=== PATIENT | female | born 1995 | race American Indian/Alaskan Native ===

== ENCOUNTER 2024-10-29 08:03 | Outpatient (AMB) | payer MEDICAID, SELFPAY ==
--- NOTE | 2024-10-29 08:02 | A.OFFVIS_ITS ---
Intake Visit Reasons: painful atypical urethritis Intake Note: New Patient is present c/o painful atypical urethritis Urology Rx:none Blood Thinners:none Perinatology Physician Required: No Accompanied by: Self / Same As Patient Allergies No Known Allergies Allergy (Verified 10/29/24 08:34) Medication List - Last Reconciled 10/29/24 by NADINE Gandara No Known Home Meds HPI Comments Details: Diana is a pleasant 29-year-old female patient of Dr. Lozoya. She has a past medical history of pelvic inflammatory disease, sinusitis, intermittent asthma, anxiety, depression, and dysmenorrhea. She presents to the office today as a new patient for ongoing lower urinary tract symptoms she has been experiencing over the last 3 months. She reports noting intermittent episodes of cloudy urine as well as ongoing issues with inflammation to her vaginal area. She reports having followed up with her PCP at which time recommendations were made for urology referral for further assessment evaluation. In office urinalysis results reviewed with the patient today 2+ microscopic hematuria. S he does report a previous history of nicotine dependence socially many years ago however has not smoked for over 10 years. She reports these episodes of smoking were infrequent. She also discusses her longstanding history of constipation over the last year. When asked she does report to be sexually active however does not relate these symptoms with sexual activity as they happen even without sexual intercourse. We did discussed potential causes of microscopic hematuria as well as cloudy urine. She denies urinary urgency, urinary frequency, incontinence, nocturia, hematuria, foul smelling urine, changes to urinary stream, flank pain, fever, and or chills. She does report episodes of dysuria at times when she is having inflammation to her vaginal area. She reports she has increased her fluid intake and changed her diet to assist with constipation and still feels she has bowel issues. She reports despite increase in fluid intake she feels she does not urinate regularly. We did discussed correlation of constipation with urinary health. All questions were answered. She otherwise offers no other issues or concerns at this time. Discussion Notes I advised avoiding bladder irritants such as caffeine, spicy foods, and carbonated drinks for two to four weeks to see if symptoms improve. We also discussed the use of a bladder diary to monitor fluid intake and output. Plan The patient will undergo an ultrasound of the kidneys and bladder to evaluate the urinary symptoms further. A referral to a target aircraft technician is planned to manage constipation, which may be impacting urinary function. The patient will keep a bladder diary to monitor fluid intake and urinary output, providing insight into urinary frequency and urgency. Avoidance of bladder irritants is recommended for two to four weeks to assess symptom improvement. [facility] Medical History (Updated 10/29/24 @ 09:20 by JESSIKA GandaraP-) Pelvic inflammatory disease Frontal sinusitis Cervicalgia Loss of smell Cough Mild intermittent asthma Dyspareunia in female Dysmenorrhea Lower abdominal pain Generalized anxiety disorder Moderate episode of recurrent major depressive disorder Review of Systems Const All systems reviewed & are unremarkable except as noted in HPI and below Physical Exam Const General: cooperative, healthy appearing, comfortable, no acute distress, well developed, alert and awake Orientation/consciousness: patient oriented x3 Limitations: no limitations HEENT Head: Yes normal to inspection, Yes normocephalic and Yes atraumatic Ears: hearing grossly normal bilaterally Eyes General: appearance normal, both eyes and all related structures Neck Neck: Yes normal visual inspection and Yes trachea midline Chest Chest palpation & inspection: normal inspection of the chest Resp Effort & Inspection: normal respiratory effort and able to speak in complete sentences Cardio Rate: regular rate GI Inspection: Yes normal to inspection General: Yes no CVA tenderness Back/Spine/Pelvis Back: no CVA tenderness Skin General skin exam: no rashes or lesions noted Neuro General: patient oriented x3 Extrem General: Yes normal to inspection Psych Appearance: grossly normal and well kempt Mental Status: mental status grossly normal Speech and movement: Normal speech and movement present and Clear speech present Affect: normal affect Attitude: cooperative Thought process: Normal thought process present Thought content: Normal thought content present Insight: Fair insight present (Psych) Judgement: Fair judgement present (Psych) Assessment & Plan Assessment & Plan (1) Cloudy urine: Code(s): R82.90 - Unspecified abnormal findings in urine Category: Medical (2) Microscopic hematuria: Code(s): R31.29 - Other microscopic hematuria Category: Medical Plan In office urinalysis results reviewed with the patient today; as noted above; will send for urine cytology as well as urine culture. We discussed bladder triggers and irritants. We discussed correlation of constipation and urinary health. Will refer to GI for further assessment evaluation. Will obtain retroperitoneal ultrasound for further assessment evaluation. We discussed potential causes of lower urinary tract symptoms patient is experiencing as well as further treatment options and risks and benefits of these treatment options. Information provided regarding bladder diary. Follow-up in 3 months with imaging and bladder diary; or sooner with any issues, concerns, and or questions. Orders: Orders AMB Urinalysis Automated Today Z13.9 - Encounter for screening, unspecified US retroperitoneal comp Today R82.90 - Unspecified abnormal findings in urine Urine Cytology Today R31.29 - Other microscopic hematuria, R82.90 - Unspecified abnormal findings in urine Urine Culture Today R31.29 - Other microscopic hematuria, R82.90 - Unspecified abnormal findings in urine Referrals Gastroenterology Referral K59.00 - Constipation, unspecified Patient Instructions: The patient had an opportunity to ask questions regarding the treatment plan. All questions were answered. Physical exam, labs, and imaging were discussed and reviewed in detail. As well as risks, benefits, and discussion of treatment choices. No major barriers to understanding were identified. The patient expressed understanding and agreement with the above treatment plan. The patient was made aware they should contact our office by phone for worsening of their current condition, the appearance of new symptoms, or with any questions or concerns. Compliance is encouraged with any medications and follow up testing that is ordered. It is a privilege to be allowed the opportunity to participate in? your urological care.? Again, if you have any questions or concerns If you have any questions or concerns please do not hesitate to contact me. The office is [phone]. This note is constructed using voice recognition software. While every effort has been made to ensure accuracy ornamental metal erector apprentice errors may have been included. Yours sincerely, NADINE Gandara Coding Level of Care Code New Pt Level 3 (88522) Diagnoses Cloudy urine R82.90 Microscopic hematuria R31.29
--- OUTSIDE RECORDS SUMMARY | 2024-10-29 08:08 | XMS_ITS | Clinical Summary ---
Author Organization [facility] Address [address] [place] [address] Phone Care Team Providers Care Tap Out Operator Name Role Phone Ricki Stokes Primary Care Provider [phone] Allergies No known active allergies Social History Tobacco Use Types Packs/Day Years Used Date Smoking Tobacco: Never Assessed Comments Unknown Sex and Gender Information Value Date Recorded Sex Assigned at Female 06/02/2024 12:17 PM EST Legal Sex Female 1:15 PM EST Gender Identity Female 06/02/2024 12:17 PM EST Sexual Orientation Straight 06/02/2024 12 :17 PM EST Last Filed Vital Signs Vital Sign Reading Time Taken Comments Blood Pressure 132/97 06/02/2024 10:44 AM EST Pulse 82 06/02/2024 10:44 AM EST Temperature 37.2 C (99 F) 06/02/2024 10:44 AM EST Respiratory Rate 16 06/02/2024 10:44 AM EST Oxygen Saturation 98% 06/02/2024 10:44 AM EST Inhaled Oxygen Concentration - - Weight 68 kg (150 lb) 06/02/2024 10:44 AM EST Height 160 cm (5' 3 ) 06/02/2024 10:44 AM EST Body Mass Index 26.57 06/02/2024 10:44 AM EST Plan of Treatment Health Maintenance Due Date Last Done Comments Cervical Cancer Screening: Pap Smear 2017 HPV Vaccines (2 - 3-dose series) 12/06/2020 11/08/2020 Social Influencers of Health Screening 03/07/2022 Hepatitis B Vaccines (2 of 2 - CpG 2-dose series) 01/31/2023 01/03/2023 Pneumococcal Vaccine: Pediatrics (0 to 5 Years) and At-Risk Patients (6 to 49 Years) (2 of 2 - PCV) 10/04/2023 10/03/2022 COVID-19 Vaccine (2 - season) 2023 10/03/2022 Depression Screening 04/09/2024 Influenza Vaccine (#1) 2024 , 03/15/2020, 02/10/2019, Additional history exists Cholesterol Screening (Lipid Panel) 05/13/2025 05/13/2020, 07/04/2018 DTaP,Tdap,and Td Vaccines (3 - Td or Tdap) 07/03/2028 07/03/2018, 05/25/2011 HIV Screening Completed 07/04/2018 Hepatitis C Screening Completed 10/16/2022 MMR Vaccines Aged Out 01/03/2023 No longer eligi ble based on patient's age to complete this topic HIB Vaccines Aged Out No longer eligi ble based on patient's age to complete this topic Hepatitis A Vaccines Aged Out No long er eligible based on patient's age to complete this topic IPV Vaccines Aged Out No longer eligi ble based on patient's age to complete this topic Meningococcal ACWY Vaccine Aged Out N o longer eligible based on patient's age to complete this topic Meningococcal B Vaccine Aged Out No l onger eligible based on patient's age to complete this topic RSV Immunization Patients Under 20 months Aged Out No longer eligible based on patient's age to complete this topic Varicella Vaccines Aged Out No longer eligible based on patient's age to complete this topic Insurance MEDICAID - [place] Care Teams Tap Out Operator Relationship Specialty Start Date End Date Ricki Stokes PA [address] [place] [id number] PCP - General Internal Medicine 10/13/20
--- OUTSIDE RECORDS SUMMARY | 2024-10-29 08:08 | XMS_ITS | Encounter Summary ---
Author Organization [employer] [facility] Address [address] [place] [address] Care Team Providers Care Associate Dean Of Students Name Role Phone Unavailable Primary Care Provider Unavailabl e Encounter Details Date Type Department Care Team (Late st Contact Info) Description 10/28/2024 Population Health Risk Score [facility] ([facility] Department [address] [address] Provider, Population Health Generic Social History Tobacco Use Types Packs/Day Years Used Date Smoking Tobacco: Never Assessed Comments Unknown Sex and Gender Information Value Date Recorded Sex Assigned at Not on file Legal Sex Female 9:28 PM EDT Gender Identity Not on file Sexual Orientation Not on file documented as of this encounter Plan of Treatment Not on file documented as of this encounter Visit Diagnoses Not on filedocumented in this encounter
== END 2024-10-29 08:38 | disposition home or self-care (01) ==
LOC: HO.HUSH 08:04
PROVIDERS: PCP Obstetrics & Gynecology Reproductive Endocrinology; Visit Provider Nurse Practitioner Family
DX: R82.90 Unspecified abnormal findings in urine (principal); R31.29 Other microscopic hematuria; Z13.9 Encounter for screening, unspecified
CPT/HCPCS: 99203

== ENCOUNTER 2024-10-29 08:03 | Outpatient (REF) | payer MEDICAID, SELFPAY | END 2024-10-29 08:04 | disposition home or self-care (01) | LOC: HO.LAB 08:03 | PROVIDERS: PCP Obstetrics & Gynecology Reproductive Endocrinology; Visit Provider Nurse Practitioner Family | DX: N34.2 Other urethritis (principal); R82.90 Unspecified abnormal findings in urine; R31.29 Other microscopic hematuria; K59.00 Constipation, unspecified; Z31.89 Encounter for other procreative management | CPT/HCPCS: 81003; 87086; 87147; 88112; 99212 ==

== ENCOUNTER 2024-12-30 13:31 | Outpatient (REF) | payer MEDICAID, SELFPAY ==
--- NOTE | ~2024-12-30 | US_ITS ---
EXAMINATION: US RETROPERITONEAL COMPLETE (RENAL) CLINICAL INFORMATION: Abnormal urine test. COMPARISON: None available. TECHNIQUE: Real-time imaging of the kidneys and bladder. FINDINGS: RIGHT KIDNEY: 12 x 4 x 6 cm (SAG x AP x TRV). Volume: 173 cc. Normal echotexture. Normal renal cortical thickness. No hydronephrosis. No solid or cystic lesion. LEFT KIDNEY: 11 x 5 x 5 cm (SAG x AP x TRV). Volume: 173 cc. Normal echotexture. Normal renal cortical thickness. No hydronephrosis. No gross solid or cystic lesion. BLADDER: Fluid-filled. Bilateral ureteral jets are demonstrated. Prevoid bladder volume is 368 mL. Postvoid bladder volume is 13 mL. US/US retroperitoneal comp IMPRESSION: 13 cc of retained urine in a post void image. No hydronephrosis. Normal kidneys. Electronically signed by: Nawaf Alston MD 12/30/2024 02:14 PM EDT
--- OUTSIDE RECORDS SUMMARY | 2024-12-30 16:37 | XMS_ITS | Clinical Summary ---
Author Organization [facility] Address [address] [place] [address] Care Team Providers Care Housekeeping Cleaner Name Role Phone Ricki Stokes Primary Care Provider Source Comments PLEASE NOTE, if this patient is a minor, it may be UNLAWFUL to discuss sensitive information that is contained in these records (such as FAMILY PLANNING, MENTAL HEALTH or SUBSTANCE ABUSE) with the minor patient's parent or other person without the patient's specific authorization.[facility] Allergies No known active allergies Medications docusate sodium (COLACE) 100 mg capsuleIndicati ons:Difficulty passing stool Take 1 Capsule by mouth 2 (two) times daily 180 Capsule 4 Active polyethylene glycol, PEG, 3350 (GLYCOLAX) 17 gram/dose powderIndicatio ns:Difficulty passing stool Take 17 g by mouth once daily as needed (if no complete BM in 4 days) 510 g 4 Active hydrocortisone 1 % cream Apply topically 2 (two) times daily Apply very lightly to affected areas only. 30 g 1 5 Active naproxen (NAPROSYN) 500 mg tabletIndicatio ns:Chronic pain of right knee Take 1 Tablet by mouth 2 (two) times daily with a meal. 60 Tablet 1 5 Active sulfamethoxazol e-trimethoprim (BACTRIM DS) 800-160 mg per tabletIndicatio ns:Urinary tract infection without hematuria, site unspecified Take 1 Tablet by mouth 2 (two) times daily 6 Tablet 4 12/10/19 25 Discontin ued(Thera py completed /Not needed) ibuprofen 600 mg tabletIndicatio ns:Influenza Take 1 Tablet by mouth 3 (three) times daily as needed for pain TAKE 1 TABLET BY MOUTH FOUR TIMES DAILY FOR PAIN 30 Tablet 5 12/10/19 25 Discontin ued(Ineff ective therapy) codeine-guaifen esin (ROBITUSSIN-AC) 10-100 mg/5 mL syrupIndication s:Influenza Take 5 mL by mouth every 6 (six) hours as needed for cough or congestion for up to 5 days 120 mL 5 12/10/19 25 Discontin ued(Thera py completed /Not needed) Active Problems Patient Care Coordination No te Formatting of this note migh t be different from the original. 23 y/o presents to clinic for evaluation of congestion concerns. Problem Noted Date Diagnosed Date Food insecurity 10/08/2024 Financial difficulties 10/08/2024 Moderate episode of recurren t major depressive disorder ([facility]) 09/14/2023 Generalized anxiety disorder 09/14/2023 Lower abdominal pain 05/04/2021 Dysmenorrhea 05/04/2021 Dyspareunia in female 05/04/2021 Mild intermittent asthma ([facility]) 05/04/2021 Cough 04/10/2021 Loss of smell 04/10/2021 Cervicalgia 10/05/2020 Frontal sinusitis 02/11/2019 Pelvic inflammatory disease (PID), Suspected 07/2018 Overview (02/10/2019): 03/28/18, [facility] report, Impression PID, Suspected - UA positive for nitries and white cells. On exam she has some very mild suprapubic tenderness, pelvic exam also with some white discharge and some mild adnexal and certical motion tenderness. Wet prep (-). She tells me that she is somewhat suspicious of her partner for having other partners. Given this history, we will go ahead and treat her empirically for PID. Given muscular ceftriaxone, and discharged with doxy and keflex courses. Resolved Problems Problem Noted Date Diagnosed Date Resolved Date Upper respiratory infection 04/10/2021 06/03/[address] 07/03/2018 Overview (07/03/2018): October 2017 placed by [facility] Homelessness 05/30/2018 07/03/2018 Encounters Date Type Department Care Team Description 12/15/2024 Results Follow-Up [address] [phone] Jose Luis Barrios FNP 12/09/2024 4:20 PM EDT Office Visit [address] [phone] Jose Luis Barrios FNP 12/01/2024 4:00 PM EDT BH/MH Visits [facility] [address] [place] [phone] Kevin Dawkins, [employer] 11/18/2024 4:00 PM EDT BH/MH Visits [facility] [address] [place] [phone] Kevin Dawkins, [employer] 10/28/2024 4:00 PM EDT BH/MH Visits [facility] [address] [place] [phone] Kevin Dawkins, [employer] 10/17/2024 3:15 PM EDT BH/MH Visits [facility] [address] [place] [phone] Kevin Dawkins, [employer] 10/08/2024 Interim Notes [address] [phone] Cappas, Caitlyn 10/06/2024 Interim Notes [address] [phone] Neisha Henderson from Last 3 Months Immunizations Immunization Administration Dates Next Due Flu, Preservative Free 01/03/2023,03/15/2020,07/2018 HPV 9 (Gardasil) 11/08/2020 Hep B,adult,adjuvanted (HEPLISAV) 01/03/2023 INFLUENZA, SEASONAL, INJECTABLE 02/07/2018,05/07 Influenza, Whole 02/15/2011 MMR (MMR II/Priorix) 01/03/2023 MODERNA COVID-19 VACCINE BIV ESMER, JASON CAP, 6M+ 10/03/2022 PNEUMOCOCCAL POLYSACCHARIDE PPV23 (Pneumovax 23) 10/03/2022 TDAP 07/03/2018,05/25/2011 Family History Medical History Relation Name Comments Hypertension Mother Relation Name Status Comments Mother Alive Social History Tobacco Use Types Packs/Day Years Used Date Smoking Tobacco: Never Smokeless Tobacco: Never Tobacco Cessation:Counseling Given: Not Answered Alcohol Use Standard Drinks/Week Comments No 0 (1 standard drink = 0.6 oz pur e alcohol) Social Connections Answer Date Recorded How often do you feel lonely or isolated from th ose around you? 1 10/08/2024 Financial Resource Strain Answer Date R ecorded Hard to pay for: Food 2 10/08/2024 Stress Answer Date Recorded Do you feel these kinds of stress these days? 1 10/08/2024 Physical Activity Answer Date Recorded Physical Activity 0 11/30/2018 Food Insecurity Answer Date Recorded Hard to pay for: Food 2 10/08/2024 Transportation Needs Answer Date Record ed Hard to pay for: Transportation 1 10/08/2024 Housing Stability Answer Date Recorded Hard to pay for: Rent/Mortgage payment 1 10/08/2024 Safety and Environment Answer Date Mekhi rded How often does anyone, inclu ding family and friends, physically hurt you? 1 06/05/2024 Utilities Answer Date Recorded Hard to pay for: Utilities 1 10/08 Employment Answer Date Recorded Stress 0 09/28/2022 Comments No Sex and Gender Information Value Date Recorded Sex Assigned at Female 05/01/2017 12:39 PM PST Legal Sex Female 11:36 AM PDT Gender Identity Female 05/01/2017 12:39 PM PST Sexual Orientation Straight 09/28/2022 8: 06 AM PDT Last Filed Vital Signs Vital Sign Reading Time Taken Comments Blood Pressure 102/62 12/09/2024 4:28 PM EDT Pulse 71 12/09/2024 4:28 PM EDT Temperature 36.9 C (98.4 F) 12/09/2024 4:28 PM EDT Respiratory Rate 18 12/09/2024 4:28 PM EDT Oxygen Saturation 99% 12/09/2024 4:28 PM EDT Inhaled Oxygen Concentration - - Weight 73.9 kg (163 lb) 12/09/2024 4:28 PM EDT Height 160 cm (5' 3 ) 12/09/2024 4:28 PM EDT Body Mass Index 28.87 12/09/2024 4:28 PM EDT Plan of Treatment Upcoming Encounters Date Type Department Care Team (Late st Contact Info) Description 01/05/2025 4:00 PM EDT BH/ Visits [facility] [address] [place] [phone] Kevin Dawkins, [facility] [address] [place] [address] 01/20/2025 4:00 PM EDT BH/ Visits [facility] [address] [place] [phone] Kevin Dawkins, [facility] [address] [place] [address] 01/27/2025 3:40 PM EDT Office Visit [facility] [address] [place] [phone] Ricki Stokes PA [address] [place] [address] Health Maintenance Due Date Last Done Comments HPV Screening 1996 Imm-HPV (2 - 3-dose series) 12/06/2020 11/08/2020 Imm-Hepatitis B (2 of 2 - Cp G 2-dose series) 01/31/2023 01/03/2023 Pap Smear 09/03/2023 09/02/2020, 09/02/2020 Imm-Pneumococcal (2 of 2 - PCV) 10/04/2023 Depression Monitoring 09/02/2024 06/05/2024 , 01/24/2024, 01/24/2024, Additional history exists [id number] (2 - 2024- season) 2024 023 Imm-Influenza (#1) 2024 01/03/2023, 1 05/16/2019, 02/10/2019, Additional history exists Annual Wellness (Adult): Indicated (All Coverage) 01/23/2025 01/24/2024, 09/28/2022, 07/03/2018, Additional history exists Anxiety Screening 03/19/2025 03/19/2024 Relationship Safety Screening/Counseling 06/05/2025 06/05/2024, 05/21/2023, 09/28/2022, Additional history exists Tobacco Screening 06/05/2025 06/05/2024 Hypertension Screening (#1) 12/09/2025 Imm-DTaP/Tdap/Td (3 - Td or Tdap) 07/03/2028 019, 05/25/2011 Cervical Cancer Screening 10/06/2028 Pap + HPV 10/06/2028 10/07/2023 HIV Screening Completed 07/04/2018 Hepatitis C Screening Completed 10/16/2022 Alcohol and Drug Screen Completed 06/05/19 25, 01/24/2024, 05/21/2023, Additional history exists Cervical Ablation/Cold-Knife Conization Discontinued Cervical Cryotherapy Discontinued Colposcopy Discontinued Endometrial Biopsy Discontinued Excision/Leep Discontinued HPV Genotyping Discontinued Vaginal Pap Discontinued Vulvoscopy Discontinued Procedures Procedure Name Priority Date/Time Associated Diagnosis Comments KNEE LAVERNE Routine 12/11/2024 3:00 AM EDT Chronic pain of right knee HEPATITIS C AB W/RFLX HCV RNA, QT, RT PCR Routine 10/16/2022 11:05 AM EDT Routine adult health maintenance PAP SMEAR Routine 09/02/2020 ANTIBODY HIV-1&HIV-2 SINGLE RESULT Routine 07/04/2018 10:00 AM EDT Routine general medical examination at a health care facility from Last 3 Months or Most Recently Relevant to Health Maintenance Results * MR ANDRA GALLOWAY (12/11/2024 3:00 AM EDT) 12/11/2024 3:00 AM EDT Impressions [facility] - 12/11/2024 6:14 PM EDT IMPRESSION: 1. No meniscal or ligament tear. 2. 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 Read by: James Fletcher M.D. Reviewed and Electronically Signed by: James Fletcher M.D. [facility] DI[facility]NOSTIC [facility] - 12/11/2024 6:14 PM EDT Original Report EXAM: MR KNEE WITHOUT CONTRAST RIGHT INDICATION: Right knee pain. TECHNIQUE: Routine multiplanar imaging is obtained. COMPARISON: None. FINDINGS: Normal medial and lateral menisci. Normal anterior cruciate ligament and posterior cruciate ligament. Medial collateral ligament and lateral collateral ligament complex are intact. No osseous contusion. No significant knee joint effusion. There is patella kulwinder with minimal lateral translation of the patella. Moreover, there is edema in the superolateral portion of Hoffa's fat pad, mild, in keeping with patella lateral femoral condyle friction syndrome. Patellar articular cartilage is preserved. Femoral trochlear cartilage is preserved. Femorotibial cartilage is preserved. Extensor mechanism is unremarkable. Procedure Note Demarco, [facility] Provider - 12/11/2024 Original Report EXAM: MR KNEE WITHOUT CONTRAST RIGHT INDICATION: Right knee pain. TECHNIQUE: Routine multiplanar imaging is obtained. COMPARISON: None. FINDINGS: Normal medial and lateral menisci. Normal anterior cruciate ligament and posterior cruciate ligament. Medial collateral ligament and lateral collateral ligament complex are intact. No osseous contusion. No significant knee joint effusion. There is patella kulwinder with minimal lateral translation of the patella. Moreover, there is edema in the superolateral portion of Hoffa's fat pad, mild, in keeping with patella lateral femoral condyle friction syndrome. Patellar articular cartilage is preserved. Femoral trochlear cartilage is preserved. Femorotibial cartilage is preserved. Extensor mechanism is unremarkable. IMPRESSION: IMPRESSION: 1. No meniscal or ligament tear. 2. 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 Read by: James Fletcher M.D. Reviewed and Electronically Signed by: James Fletcher M.D. Jose Luis Barrios [employer] IM[facility] MRI Edited Re sult - Final [facility] Corporate Office [address], [address] [place] [address], * HEPATITIS C AB W/RFLX HCV RNA, QT, RT PCR (10/16/2022 11:05 AM EDT) HEPATITIS C ANTIBODY NON-REACT AMANDA NON-REACT [facility] Comment: HCV antibody was non-reactive. There is no laboratory evidence of HCV infection. In most cases, no further action is required. However, if recent HCV exposure is suspected, a test for HCV RNA (test code 57764) is suggested. For additional information please refer to http://education.[employer]/faq/UWI25q5 (This link is being provided for informational/ educational purposes only.) Blood Blood / Unknown 10/16/2022 1 1:05 AM EDT 10/16/2022 11:06 AM EDT Narrative [employer] - 10/17/2022 6:08 PM EDT FASTING:NO Ricki ALLEN LAB - BLOOD DRAW Final Result Performing Organization Address [facility]/ZIP Co de Phone Number [employer] [address] [address], [employer] [address] [address] * PAP SMEAR (09/02/2020) PAP SMEAR INTERPRETATION NORMAL NORMAL [facility] Cervix 09/02/2020 Narrative [facility] - 09/02/2020 Thinprep pap: Negative for squamous intraepithelial lesion and malignancy Satisfactory for evaluation. Endocervical/transformation zone present. Provider [facility] - PATHOLOGY AND CYTOLOGY AMB ULATORY Final Result [facility] [address] [place] [address], * HIV-1 & HIV-2 ANTIBODIES (07/04/2018 10:00 AM EDT) [facility] Signature HIV 1 AND 2 ANTIBODY SCREEN NEGATIVE NEGATIVE [employer] [facility] Comment: This assay is a 4th generation assay allowing for earlier detection of HIV infection by detecting the presence of the HIV-1 p24 antigen as well as the traditional antibodies to HIV type 1 (including group O) and type 2. Use of a 4th generation assay is the current CDC recommendation for HIV screening. Blood specimen (specimen) Blood / Unknown 07/04/2018 10:00 AM EDT 07/04/2018 11:05 AM EDT [facility] [employer] - 07/04/2018 2:27 PM EDT [employer], [place] [address] Embedded Nurse - Maria T Downing MD PT ID [id number] ORD# [id number] Nicole Deluna PA-C LAB - BLOOD DRAW Final Re sult [address] [address], from Last 3 Months or Most Recently Relevant to Health Maintenance Insurance [facility] [employer] [id number] [employer] Care Teams Housekeeping Cleaner Relationship Specialty Start Date End Date Ricki Stoeks PA [address] [place] [address] PCP - General Internal Medicine 06/05/18
--- OUTSIDE RECORDS SUMMARY | 2024-12-30 16:37 | XMS_ITS | Clinical Summary ---
Author Organization [employer] [facility] Address [address] [facility] [address] [place] [address] Care Team Providers Care Relief Charge Nurse Name Role Phone Unavailable Primary Care Provider Unavailabl e Encounters Date Type Department Care Team Description 10/28/2024 Population Health Risk Score [facility] Department [address] [address] Provider, Population Health Generic from Last 3 Months Social History Tobacco Use Types Packs/Day Years Used Date Smoking Tobacco: Never Assessed Comments Unknown Sex and Gender Information Value Date Recorded Sex Assigned at Not on file Legal Sex Female 9:28 PM EDT Gender Identity Not on file Sexual Orientation Not on file Plan of Treatment Health Maintenance Due Date Last Done Comments Depression Screening 1996 SDOH Screening 1996 Disability Screening 1996 Alcohol/Substance Use Screening 2008 Tobacco Screening 2008 Family Planning (PISQ) 2011 Hepatitis C Screening 2014 Pap Smear 2017 HPV Vaccines (2 - 3-dose series) 12/06/2020 11/08/2020 Hepatitis B Vaccines (2 of 2 - CpG 2-dose series) 01/31/2023 01/03/2023 Pneumococcal Vaccine: Pediatrics (0 to 5 Years) and At-Risk Patients (6 to 49) Years (2 of 2 - PCV) 10/04/2023 10/03/2022 COVID-19 Vaccine (2 - 2024- season) 2024 10/03/2022 Influenza Vaccine (#1) 2024 , 03/15/2020, 02/10/2019, Additional history exists DTaP/Tdap/Td Vaccines (3 - Td or Tdap) 07/03/2028 07/03/2018, 05/25/2011 Zoster Vaccines (1 of 2) 2046 RSV Patients and Patients Aged 60 years or older (1 - 1-dose 75+ series) 2071 HIV Screening Completed 07/04/2018 HIB Vaccines Aged Out No longer eligi [...] patient's age to complete this topic Meningococcal Vaccine Aged Out No [place] eligible based on patient's age to complete this topic RSV under 20 months Aged Out No longe r eligible based on patient's age to complete this topic Rotavirus Vaccines Aged Out No longer eligible based on patient's age to complete this topic
--- OUTSIDE RECORDS SUMMARY | 2024-12-30 16:37 | XMS_ITS | Clinical Summary ---
Author Organization [facility] Address [address] [place] [address] Phone Care Team Providers Care Adobe Architect Name Role Phone Ricki Stokes Primary Care Provider [phone] Allergies No known active allergies Social History [...] 06/02/2024 10:44 AM EST Plan of Treatment Upcoming Encounters Date Type Department Care Team (Late st Contact Info) Description 01/30/2025 9:00 AM EDT Evaluation [facility] [address] [phone] Renee Dennis PT Health Maintenance Due Date Last Done Comments Cervical Cancer Screening: Pap Smear 2017 HPV Vaccines (2 - 3-dose series) 12/06/2020 11/08/2020 Social Influencers of Health Screening 03/07/2022 Hepatitis B Vaccines (2 of 2 - CpG 2-dose series) 01/31/2023 01/03/2023 Pneumococcal Vaccine: Pediatrics (0 to 5 Years) and At-Risk Patients (6 to 49 Years) (2 of 2 - PCV) 10/04/2023 10/03/2022 Depression Screening 04/09/2024 COVID-19 Vaccine (2 - 2024- season) 2024 10/03/2022 Influenza Vaccine (#1) 2024 , 03/15/2020, 02/10/2019, Additional history exists Cholesterol Screening (Lipid Panel) 05/13/2025 05/13/2020, 07/04/2018 DTaP,Tdap,and Td Vaccines (3 - Td or Tdap) 07/03/2028 07/03/2018, 05/25/2011 RSV Immunization Adult Patients (1 - 1-dose 75+ series) 2071 HIV Screening Completed 07/04/2018 Hepatitis C Screening [...] patient's age to complete this topic Insurance Care Teams Adobe Architect Relationship Specialty Start Date End Date Ricki Stokes PA [address] [place] [address] PCP - General Internal Medicine 10/13/20
== END 2024-12-30 13:32 | disposition home or self-care (01) ==
LOC: HO.US 13:31
PROVIDERS: PCP Physician Assistant; Visit Provider Nurse Practitioner Family
DX: R82.90 Unspecified abnormal findings in urine (principal)
CPT/HCPCS: 76770

== ENCOUNTER → 2024-12-30 13:34 | Outpatient (BNV) | payer MEDICAID, SELFPAY | PROVIDERS: PCP Physician Assistant; Visit Provider Radiology Diagnostic Radiology | DX: R82.79 Other abnormal findings on microbiological examination of urine (principal) | CPT/HCPCS: 76770 ==

== ENCOUNTER 2025-02-03 15:44 | Outpatient (AMB) | payer MEDICAID, SELFPAY ==
--- OUTSIDE RECORDS SUMMARY | 2025-01-30 09:00 | XMS_ITS | Encounter Summary ---
Author Organization [facility] Address [address] [place] [address] Care Team Providers Care Dining Service Inspector Name Role Phone Ricki Stokes Primary Care Provider [phone] Reason for Visit * Consultation (Routine) - Authorized Specialty Diagnoses / Procedures Referred By Adina hodges Referred To Contact Physical Therapy Diagnoses Chronic pain of right knee Jose Luis Barrios NP [address] [place] [address] Phone: tel: fax: Referral ID Status Reason Start Date Expiration Date Visits Requested Visits Authorized [id number] Authorized Specialty Services Required 12/26/2024 12/26/2025 20 9 Encounter Details Date Type Department Care Team (Latest Contact Info) Description 01/30/2025 9:00 AM EDT Evaluation [address] [phone] Renee Dennis, INDIO Chronic pain of right knee Social History Tobacco Use Types Packs/Day Years Used Date Smoking Tobacco: Never Assessed Comments Unknown Sex and Gender Information Value Date Recorded Sex Assigned at Female 06/02/2024 12:17 PM EST Legal Sex Female 1:15 PM EST Gender Identity Female 06/02/2024 12:17 PM EST Sexual Orientation Straight 06/02/2024 12 :17 PM EST documented as of this encounter Progress Notes * Renee Dennis, INDIO - 01/30/2025 9:00 AM EDT [facility] - Outpatient PHYSICAL THERAPY EVALUATION Date: 01/30/2025 Visit Number: 1 Patient Name: Diana Best : 1995 Age: 29 y.o. Gender: female Diagnosis: ICD-10-CM ICD-9-CM 1. Chronic pain of right knee M25.561 719.46 Ambulatory referral to Physical Therapy and Athletic Training G89.29 338.29 Date of Onset/Surgery: 01/30/2025 Referring Provider: Jose Luis Barrios NP Insurance: [place] / Plan[place] / Product Type: *No Product type* / Patient identified by: Renee Dennis PT Language: Speaks and understands Anguillan as preferred language with no sign language interpreter required Chart Reviewed: Yes Medications: Medications Ordered Prior to Encounter[1] Discussed current medications that may impact therapy. Medication list obtained and reviewed. Referto document in medical record. Advised Patient to contact MD with any questions regarding medications and importance of managing medication information. has no past medical history on file. has no past surgical history on file. has no known allergies. Precautions: none Concurrent Services: No Concurrent Services Previous Medical Care/Therapy: prescribed naprosyn SUBJECTIVE History of Present Illness/Subjective Report: Pt presents with report of impact injury to her rightknee in 2020 that seemed to be healed within a few months. Pt reported that she feels a sharp/shooting pain that initiates from her R groin into the anterior region of her thigh to her knee. Pt reported that the pain is burning in nature and that she cannot feel her R foot/ankle when the pain is sev ere. 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 Pt was prescribed naprosyn which seemed to alleviate the symptoms a little, however, she stopped taking the medication secondary to constipation. Pt referred to PT for evaluation and treatment of chronic R knee pain. Current Functional Limitations: Reported by Patient difficulty with turning in bed, prolonged standing, prolonged sitting, squatting, lifting Is the patient at Risk for Falls: No Pain: Anterior aspect of R quiros, chronic, tender/burning, 06/16 Home Environment: pt lives in second floor apartment with stair access Prior Level of Function: independent with ambulation and ADLs, working as DIVISION OPERATIONS SPECIALIST OBJECTIVE General Observations/Comments: pt is pleasant and cooperative Vitals: There were no vitals filed for this visit.; General/Functional Assessments/Extremity Assessments: Sit <-> stand: independent Ambulation: independent, mildly antalgic Bed mobility via log rolling: independent, antalgic, increased time Posture: sitting: forward head, rounded shoulders, elevated and protracted scapulae, decreased thoracic kyphosis, decreased lumbar lordosis; standing: anterior pelvic tilt Palpation: TTP R TFL/ITB and vastus lateralis muscles; patellar joint play: WNL on L, hypomobile onR; patellar tracking: slightly laterally (B) Range of Motion: Lumbar AROM: Flexion: 75% Extension: 50% +pain in lower abdomen SB L: 75% +pain on R SB R: 75% Rot L: 75% +muscle cramp Rot R: 75% +muscle cramp Hip IR PROM: WNL (B) Hip ER PROM: WNL (B) Hip extension PROM: WNL on L, 5 deg on R Knee AROM: WNL (B) Hamstring length: WNL (B) Strength: Hip MMT: Flexion: 4/5 L, 3-/5 L ABD: 3+/5 L, 3-/5 R Extension: 3-/5 L, 3-/5 R Knee MMT: Flexion: 4+/5 L, 4+/5 R Extension: 5/5 L, 5/5 R Ankle DF MMT: 5/5 L, 4/5 R Special Tests: Passive SLR test: negative Passive crossed SLR test: negative Active SLR test: positive, +pain and difficulty on R Antonia's test: positive (B), R>L Beatrice's test: positive on R Core strength via double leg lower test: 75 deg (poor) TREATMENT INTERVENTION Modalities: None performed Procedures: Therex: supine figure-4 stretch, 3 x 15 seconds (B); supine TFL/ITB stretch, 3 x 15 seconds (B); bridging, x 10; seated hip flexor/quadriceps stretch, 3 x 15 seconds; standing resisted bilateral shoulder extension with TAC, green TB, 10 x 5 seconds ASSESSMENT/Response to Treatment: Diana Best is a 29 y.o. female presenting for outpatient physical therapy evaluation with complaints of chronic R knee pain. Significant clinical findings include: decreased ROM, decreased strength, increased myofascial restrictions and pain. Patients progress may be limited by chronicity of condition and h/o C-sections. Skilled Physical therapy is medically necessary to address impairments to increase core and hip strength in order to improve lumbopelvic stability and allow for greaterease during functional mobility. Rehabilitation Potential: Rehab Potential: Functional Improvement in Response to Therapy Motivation for Rehab: Good Support Structure: Good Learning Needs: Were Patient Learning needs assessed: Yes Learning Preferences: Explanation and Demonstration Barriers to Learning: No Barriers to Learning Patient Education: [x] Discussed, with patient and/or caregiver, the recommended plan of care/goals, the importance oftherapy and appointment compliance in order to achieve goals in a timely manner. Education provided: POC; provided pt with written instructions for above therex Education Provided To: Patient utilizing Explanation, Demonstration, and Printed Material as mode(s) of education. Response to Education: Verbal Understanding and Demonstrated Skills GOALS Short-term goals: (4 visits) Pt will demonstrate compliance with HEP Pt will increase core strength to below average during DLL test Pt will increase hip MMT to 4-/5 Pt will report decreased frequency of anterior thigh pain to 3/7 days per week Long-term goals: (8 visits) Pt will be indep with final HEP Pt will report no anterior thigh pain over the past week Pt will increase hip MMT to 4/5 Pt will increase core strength to average during DLL test Pt will demonstrate neutral pelvic position when standing PLAN POC Development/Review: Initial Evaluation; Participants: Patient Skilled Therapy Plan Required: YES- Reasons for Rehab and Medical Necessity -- Function in Community Planned Therapy Interventions: Cold Pack, Hot Pack, Kinesiotaping, Manual Therapy, Neuromuscular Re-education, Therapeutic Activity, and Therapeutic Exercise Therex: lumbar stabilization; core strengthening; BLE stretching therex with focus on hip flexor, quadriceps and TFL/ITB muscles; BLE strengthening therex with focus on hip flexor, hip ABD, hip extensor and VMO muscles Recommended Consults: none Equipment Recommended: none; Equipment Provided: none Frequency/Duration: 2x/wk for 4 wks BILLING TOTAL TREATMENT TIME: 60 Minutes Evaluation Medium Complexity Justification ::: A history of present problem with 1 - 2 personal factors and/or co-morbidities that impact the plan of care and An examination of body systems using standardized tests and measures in addressing a total of 3 or more elements from any of the following body structures and functions, activity limitations, and/or participation restrictions Documentation completed by Renee Dennis PT [address] [address] Dept: [phone] Dept PATIENT NAME: Diana Best : 1995 Certification: This is to certify that the above named patient, who is under my care, requires skilled Therapy services as described in the above treatment plan. I further certify that the services outlined in this plan are skilled and medically necessary. I have reviewed this plan for rehabilitation services, and I recommend that these services continue to meet the above stated goals and plan. SIGNATURE: DATE Jose Luis Barrios NP Referring provider [1] No current outpatient medications on file prior to visit. No current facility-administered medications on file prior to visit. documented in this encounter Plan of Treatment Upcoming Encounters Date Type Department Care Team (Late st Contact Info) Description 02/17/2025 3:30 PM EST Treatment [address] [address] Lele Giraldo, DOCTORATE OF CHIROPRACTIC 02/24/2025 4:00 PM EST Treatment [address] [address] Lele Giraldo, DOCTORATE OF CHIROPRACTIC 02/26/2025 4:00 PM EST Treatment [address] [address] Lele Giraldo, DOCTORATE OF CHIROPRACTIC 03/02/2025 10:00 AM EST Treatment [address] [address] Renee Dennis, PT 03/04/2025 10:30 AM EST Treatment [facility] [address] [address] FarshadMarietta gonzalezew, DOCTORATE OF CHIROPRACTIC 03/10/2025 4:00 PM EST Treatment [facility] [address] [address] Andrew Jade, DOCTORATE OF CHIROPRACTIC 03/13/2025 9:00 AM EST Treatment [facility] [address] [address] Renee Dennis, PT 03/19/2025 3:30 PM EST [facility] [address] [address] Renee Dennis, PT documented as of this encounter Visit Diagnoses Diagnosis Chronic pain of right knee documented in this encounter Orders Outpatient Referral Count Last Ordered Date st Ordered Date AMB REFERRAL [facility] 01/30/2025 documented in this encounter Care Teams Dining Service Inspector Relationship Specialty Start Date End Date Ricki Stokes PA [address] [place] [address] PCP - General Internal Medicine 10/13/20 documented as of this encounter
--- NOTE | 2025-02-03 16:03 | A.OFFVIS_ITS ---
Intake Visit Reasons: 3m/US Intake Note: Patient presents today for: 3m/US Urology Rx:none Blood Thinners:none US done: 12/30/24 Occupational Therapy Co Director Required: No Accompanied by: Self / Same As Patient Allergies No Known Allergies Allergy (Verified 02/03/25 16:05) HPI Comments Details: Diana is a pleasant 29-year-old female patient of Dr. Lozoya. She has a past medical history of pelvic inflammatory disease, sinusitis, intermittent asthma, anxiety, depression, and dysmenorrhea. She presents to the office today for follow-up. Of note, patient was seen approximately 3 months ago as a new patient for lower urinary tract symptoms at which time a retroperitoneal ultrasound was ordered for further assessment evaluation in discussion regarding potential causes of lower urinary tract symptoms was had. Urinalysis during last office visit was sent for urine culture and resulted with group B strep. In discussion with the patient today she reports having completed ampicillin as prescribed. Recent retroperitoneal ultrasound results 01/01 bilateral kidneys are normal in echotexture and thickness. No hydronephrosis, renal lesions or renal calculi noted bilaterally. The bladder is fluid-filled. Postvoid bladder volume 15 mL. She reports since her last office visit here she has since followed up with her PCP and has since been started on senna for her ongoing issues of constipation. She discusses how helpful this has been and feels lower urinary tract symptoms have since subsided as she has been having more regular bowel movements. We did discussed correlation of constipation with lower urinary tract symptoms. During last office visit patient requested referral to gastro enterology for further assessment evaluation however has not yet received a call. Information was provided. In office urinalysis results reviewed with the patient today. During previous office visit patient was noted to have microscopic hematuria however no microscopic hematuria noted on urinalysis today. She denies urinary urgency, urinary frequency, incontinence, nocturia, hematuria, dysuria, foul smelling urine, changes to urinary stream, flank pain, fever, and or chills. She is happy with her current voiding parameters. Urine Cytology: 10/31 Negative for high-grade urothelial carcinoma. Urine culture: 10/31 10,000 to 50,000 cfu/ml Mixed bacterial nayely characteristic of urogenital contamination. Organism 1 Strep agalactiae (Grp B) [facility] Medical History (Updated 10/29/24 @ 09:20 by NADINE Gandara) Pelvic inflammatory disease Frontal sinusitis Cervicalgia Loss of smell Cough Mild intermittent asthma Dyspareunia in female Dysmenorrhea Lower abdominal pain Generalized anxiety disorder Moderate episode of recurrent major depressive disorder Review of Systems Const All systems reviewed & are unremarkable except as noted in HPI and below Physical Exam Const General: cooperative, healthy appearing, comfortable, no acute distress, well developed, alert and awake Orientation/consciousness: patient oriented x3 Limitations: no limitations HEENT Head: Yes normal to inspection, Yes normocephalic and Yes atraumatic Ears: hearing grossly normal bilaterally Eyes General: appearance normal, both eyes and all related structures Neck Neck: Yes normal visual inspection and Yes trachea midline Chest Chest palpation & inspection: normal inspection of the chest Resp Effort & Inspection: normal respiratory effort and able to speak in complete sentences Cardio Rate: regular rate GI Inspection: Yes normal to inspection General: Yes no CVA tenderness Back/Spine/Pelvis Back: no CVA tenderness Skin General skin exam: no rashes or lesions noted Neuro General: patient oriented x3 Extrem General: Yes normal to inspection Psych Appearance: grossly normal and well kempt Mental Status: mental status grossly normal Speech and movement: Normal speech and movement present and Clear speech present Affect: normal affect Attitude: cooperative Thought process: Normal thought process present Thought content: Normal thought content present Insight: Fair insight present (Psych) Judgement: Fair judgement present (Psych) Results AMB Urinalysis, Automated UA Leukoctes 0 Zakiya/uL Last Edit by MIRNA Mcgee on 02/03/25 16:18 UA Nitrite Negative Last Edit by MIRNA Mcgee on 02/03/25 16:18 UA Urobilinogen 0.2 mg/dL Last Edit by MIRNA Mcgee on 02/03/25 16:1 8 UA Protein 0 mg/dL Last Edit by MIRNA Mcgee on 02/03/25 16:18 UA pH 6.5 Last Edit by MIRNA Mcgee on 02/03/25 16:18 UA Blood 0 Asim/uL Last Edit by MIRNA Mcgee on 02/03/25 16:18 UA Specific [place] 1.010 Last Edit by MIRNA Mcgee on 02/03/25 16: 18 UA Ketone Last Edit by MIRNA Mcgee on 02/03/25 16:18 UA Bilirubin 0 mg/dL Last Edit by MIRNA Mcgee on 02/03/25 16:18 UA Glucose 0 mg/dL Last Edit by MIRNA Mcgee on 02/03/25 16:18 Results Reviewed Results Reviewed: Laboratory Last Values Urine pH (Auto) 6.5 02/03/25 16:17 Specific [place] (Auto) 1.010 02/03/25 16:17 Urine Protein (Auto) 0 mg/dL 02/03/25 16:17 Glucose (UA)(Auto) 0 mg/dL 02/03/25 16:17 Urine Blood (Auto) 0 Asim/uL 02/03/25 16:17 Urine Nitrite (Auto) Negative 02/03/25 16:17 Urine Bilirubin (Auto) 0 mg/dL 02/03/25 16:17 Urine Urobilinogen (Auto) 0.2 mg/dL 02/03/25 16:17 Leukocyte Esterase (Auto) 0 Zakiya/uL 02/03/25 16:17 Date of Service: 12/30/24 Procedure(s): US retroperitoneal comp FINDINGS: RIGHT KIDNEY: 12 x 4 x 6 cm (SAG x AP x TRV). Volume: 173 cc. Normal echotexture. Normal renal cortical thickness. No hydronephrosis. No solid or cystic lesion. LEFT KIDNEY: 11 x 5 x 5 cm (SAG x AP x TRV). Volume: 173 cc. Normal echotexture. Normal renal cortical thickness. No hydronephrosis. No gross solid or cystic lesion. BLADDER: Fluid-filled. Bilateral ureteral jets are demonstrated. Prevoid bladder volume is 368 mL. Postvoid bladder volume is 13 mL. IMPRESSION: 13 cc of retained urine in a post void image. No hydronephrosis. Normal kidneys. Assessment & Plan Assessment & Plan (1) Microscopic hematuria: Code(s): R31.29 - Other microscopic hematuria Category: Medical (2) Cloudy urine: Code(s): R82.90 - Unspecified abnormal findings in urine Category: Medical (3) Constipation: Code(s): K59.00 - Constipation, unspecified Category: Medical Plan In office urinalysis results with the patient today; as noted above. Recent retroperitoneal ultrasound results reviewed with the patient today; as noted above. She currently denies any bothersome urinary issues or concerns. We did discuss correlation of constipation with lower urinary tract symptoms. Information provided regarding gastroenterology contact information. All questions were answered. Will continue with surveillance monitoring. Follow-up in 4-6 months with [facility]; or sooner with any issues, concerns, and or questions. Orders: Orders AMB Urinalysis Automated Today Z13.9 - Encounter for screening, unspecified Medications: Discontinued ampicillin Discontinued Reason: Patient Completed Course 500 mg PO TID 7 days 21 caps 0RF Patient Instructions: The patient had an opportunity to ask questions regarding the treatment plan. All questions were answered. Physical exam, labs, and imaging were discussed and reviewed in detail. As well as risks, benefits, and discussion of treatment choices. No major barriers to understanding were identified. The patient expressed understanding and agreement with the above treatment plan. The patient was made aware they should contact our office by phone for worsening of their current condition, the appearance of new symptoms, or with any questions or concerns. Compliance is encouraged with any medications and follow up testing that is ordered. It is a privilege to be allowed the opportunity to participate in? your urological care.? Again, if you have any questions or concerns If you have any questions or concerns please do not hesitate to contact me. The office is [phone]. This note is constructed using voice recognition software. While every effort has been made to ensure accuracy sequins winder errors may have been included. Yours sincerely, NADINE Gandara Coding Level of Care Code Est Pt Level 3 (94452) Complex EM visit Add On G2211 Diagnoses Microscopic hematuria R31.29 Cloudy urine R82.90 Constipation K59.00
--- OUTSIDE RECORDS SUMMARY | 2025-02-03 20:00 | XMS_ITS | Clinical Summary ---
Author Organization [facility] Address [address] [place] [address] Phone Care Team Providers Care Licensed Nuclear Operator Name Role Phone Ricki Stokes Primary Care Provider [phone] Allergies No known active allergies Encounters Date Type Department Care Team Description 01/30/2025 9:00 AM EDT Evaluation [facility] [address] [address] Renee Dennis, PT Chronic pain of right knee from Last 3 Months Social History Tobacco [...] Info) Description 02/17/2025 3:30 PM EST Treatment [address] [address] Lele Giraldo, PINKING SEWING MACHINE OPERATOR 02/24/2025 4:00 PM EST Treatment [address] [address] Lele Giraldo, PINKING SEWING MACHINE OPERATOR 02/26/2025 4:00 PM EST Treatment [address] [address] Lele Giraldo, PINKING SEWING MACHINE OPERATOR 03/02/2025 10:00 AM EST Treatment [address] [address] Renee Dennis, PT 03/04/2025 10:30 AM EST Treatment [address] [address] Andrew Jade, PINKING SEWING MACHINE OPERATOR 03/10/2025 4:00 PM EST Treatment [address] [address] Andrew Jade, PINKING SEWING MACHINE OPERATOR 03/13/2025 9:00 AM EST Treatment [address] [address] Renee Dennis, PT 03/19/2025 3:30 PM EST Treatment [address] [address] Renee Dennis, PT Health Maintenance Due Date Last Done [...] Vaccine (2 - 2024- season) 2024 10/03/2022 Cholesterol Screening (Lipid Panel) 05/13/2025 05/13/2020, 07/04/2018 DTaP,Tdap,and Td Vaccines (3 - Td or Tdap) 07/03/2028 07/03/2018, 05/25/2011 RSV Immunization Adult Patients (1 - 1-dose 75+ series) 2071 HIV Screening Completed 07/04/2018 Hepatitis C Screening Completed 10/16/2022 MMR Vaccines Aged Out 01/03/2023 No longer eligi ble based on patient's age to complete this topic Influenza Vaccine Completed 01/27/2025, , 03/15/2020, Additional history exists HIB Vaccines Aged Out No longer eligi [...] to complete this topic Insurance MEDICAID - [place] Care Teams Licensed Nuclear Operator Relationship Specialty Start Date End Date Ricki Stokes PA [address] [place] [address] PCP - General Internal Medicine 10/13/20
--- OUTSIDE RECORDS SUMMARY | 2025-02-03 20:00 | XMS_ITS | Clinical Summary ---
Author Organization [employer] Address [address] [place] [address] [address] [place] [address] Care Team Providers Care Custom Dressmaker Name Role Phone Unavailable Primary Care Provider Unavailabl e Social History Tobacco Use Types Packs/Day Years [...]
--- OUTSIDE RECORDS SUMMARY | 2025-02-03 20:00 | XMS_ITS | Clinical Summary ---
Author Organization [facility] Address [address] [place] [address] Care Team Providers Care Director [place] [employer] Name Role Phone Ricki Stokes Primary Care Provider [phone] Source Comments PLEASE NOTE, if this patient [...] a meal. 60 Tablet 1 5 Active sennosides (SENOKOT) 8.6 mg tabletIndicatio ns:constipation Take 2 Tablets by mouth nightly at bedtime as needed for constipation for up to 30 days Indications: constipation. 30 Tablet 1 5 02/27/20 25 Active phentermine 37.5 mg capsuleIndicati ons:Obesity, unspecified class, unspecified obesity type, unspecified whether serious comorbidity present Take 1 Capsule by mouth every morning. Max Daily Amount: 37.5 mg 60 Capsule 1 5 Active Active Problems Patient Care Coordination No te Formatting of this note migh t be different from the original. 23 y/o presents to clinic for evaluation of congestion concerns. Problem Noted Date Diagnosed Date Food insecurity 10/08/2024 Financial difficulties 10/08/2024 Moderate episode of recurrent major depressive d isorder 09/14/2023 Generalized anxiety disorder 09/14/2023 Lower abdominal pain 05/04/2021 Dysmenorrhea 05/04/2021 Dyspareunia in female 05/04/2021 Mild intermittent asthma 05/04/2021 Cough 04/10/2021 Loss of smell 04/10/2021 [...] infection 04/10/2021 06/03/[address] 07/03/2018 2 Overview (07/03/2018): October 2017 placed by [facility] Homelessness 05/30/2018 07/03/2018 Encounters Date Type Department Care Team Description 01/27/2025 3:40 PM EDT Office Visit [facility] [address] [place] [address] Ricki Stokes PA 01/20/2025 4:00 PM EDT BH/MH Visits [facility] [address] [place] [phone] Kevin Dawkins LCSW 01/05/2025 4:00 PM EDT BH/MH Visits [place] [address] [address] [place] [phone] Kevin Dawkins LCSW 12/22/2024 4:00 PM EDT BH/MH Visits [address] [phone] Kevin Dawkins LCSW 12/15/2024 Results Follow-Up [address] [phone] Jose Luis Barrios FNP 12/09/2024 4:20 PM EDT Office Visit [address] [phone] Jose Luis Bariros, [employer] TRAINER 12/01/2024 4:00 PM EDT BH/MH Visits [address] [phone] Kevin Dawkins LCSW 11/18/2024 4:00 PM EDT BH/MH Visits [address] [phone] Kevin Dawkins, JOHN from Last 3 Months Immunizations Immunization Administration Dates Next Due Flu, Preservative Free 01/03/2023,03/15/2020,07/2018 HPV 9 (Gardasil) 11/08/2020 Hep B,adult,adjuvanted (HEPLISAV) 01/03/2023 INFLUENZA, SEASONAL, INJECTABLE 02/07/2018,05/07 Influenza (FLUBLOK),recombinant,injectable,preservati ve Free 01/27/2025 Influenza, Whole 02/15/2011 MMR (MMR II/Priorix) 01/03/2023 MODERNA COVID-19 VACCINE BIV ALENT, BLUE CAP, 6M+ 10/03/2022 PNEUMOCOCCAL POLYSACCHARIDE PPV23 (Pneumovax [...] Sign Reading Time Taken Comments Blood Pressure 130/82 01/27/2025 3:44 PM EDT Pulse 76 01/27/2025 3:44 PM EDT Temperature 37.1 C (98.8 F) 01/27/2025 3:44 PM EDT Respiratory Rate 19 01/27/2025 3:44 PM EDT Oxygen Saturation 100% 01/27/2025 3:44 PM EDT Inhaled Oxygen Concentration - - Weight 76.7 kg (169 lb) 01/27/2025 3:44 PM EDT Height 160 cm (5' 3 ) 01/27/2025 3:44 PM EDT Body Mass Index 29.94 01/27/2025 3:44 PM EDT Plan of Treatment Upcoming Encounters Date Type Department Care Team (Late st Contact Info) Description 02/16/2025 4:00 PM EST / Visits [facility] [phone] [place] [phone] JameejigarKevin, [employer] [address] [place] [address] Health Maintenance Due Date Last Done Comments HPV Screening (self-collect) 1996 HPV Screening 1996 Imm-HPV (2 - 3-dose series) 12/06/2020 11/08/2020 Imm-Hepatitis B (2 of 2 - Cp G 2-dose series) 01/31/2023 01/03/2023 Pap Smear 09/03/2023 09/02/2020, 09/02/2020 Imm-Pneumococcal (2 of 2 - PCV) 10/04/2023 [id number] (2 - 2024- season) 2024 023 Anxiety Screening 03/19/2025 03/19/2024 Depression Monitoring 04/29/2025 01/27/2025 , 06/05/2024, 01/24/2024, Additional history exists Relationship Safety Screening/Counseling 06/05/2025 06/05/2024, 05/21/2023, 09/28/2022, Additional history exists Tobacco Screening 06/05/2025 06/05/2024 Annual Wellness (Adult): Indicated (All Coverage) 01/27/2026 01/27/2025, 01/24/2024, 09/28/2022, Additional history exists Hypertension Screening (#1) 01/27/2026 Imm-DTaP/Tdap/Td (3 - Td or Tdap) 07/03/2028 019, 05/25/2011 Cervical Cancer Screening 10/06/2028 Pap + HPV 10/06/2028 10/07/2023 HIV Screening Completed 07/04/2018 Hepatitis C Screening Completed 10/16/2022 Alcohol and Drug Screen Completed 06/05/19, 01/24/2024, 05/21/2023, Additional history exists Imm-Influenza Completed 01/27/2025, 12/09, 03/15/2020, Additional history exists Cervical Ablation/Cold-Knife Conization Discontinued Cervical Cryotherapy Discontinued Colposcopy Discontinued Excision/Leep Discontinued HPV Genotyping Discontinued Vaginal Pap Discontinued Vulvoscopy Discontinued Procedures Procedure Name Priority Date/Time Associated Diagnosis Comments ABO GROUP & RH TYPE Routine 01/27/2025 4 :27 PM EDT Routine adult health maintenance Deep right inguinal pain Dyspareunia in female Obesity, unspecified class, unspecified obesity type, unspecified whether serious comorbidity present IMAGING SCANNED DOCUMENT 12/30/2024 3:00 AM EDT IMAGING SCANNED DOCUMENT 12/30/2024 3:00 AM EDT MR KNEE WO Routine 12/11/2024 3:00 AM EDT Chronic pain of right knee HEPATITIS C AB W/RFLX HCV RNA, QT, RT PCR Routine 10/16/2022 11:05 AM EDT Routine adult health maintenance PAP SMEAR Routine 09/02/2020 ANTIBODY HIV-1&HIV-2 SINGLE RESULT Routine 07/04/2018 10:00 AM EDT Routine general medical examination at a health care facility from Last 3 Months or Most Recently Relevant to Health Maintenance Results * ABO GROUP & RH TYPE Routine (01/27/2025 4:27 PM EDT) ABO GROUP AB 01/28/2025 11:05 AM EDT [employer] [facility] RH TYPE RH(D) POSITIVE 01/28/2025 11:05 AM EDT [employer] [facility] Blood Blood / Unknown 01/27/2025 4 :27 PM EDT 01/28/2025 3:05 AM EDT Narrative [facility] - 01/28/2025 11:05 AM EDT . For additional information, please refer to http://education.[employer]/faq/XVO967 (This link is being provided for informational/ educational purposes only.) us Ricki [facility] - BLOOD DRAW Final Result [facility] [address] [address], [facility] [address] [place] [address] * IMAGING SCANNED DOCUMENT (12/30/2024 3:00 AM EDT) Only the most recent of2 resultswithin the time period is included. 12/30/2024 3:00 AM EDT us Ricki ALLEN SCAN IMAGING Final Result * MR KNEE WO (12/11/2024 3:00 AM EDT) 12/11/2024 3:00 AM EDT Impressions [facility] - 12/11/2024 6:14 PM EDT IMPRESSION: 1. No meniscal or ligament tear. 2. 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 Read by: James Fletcher M.D. Reviewed and Electronically Signed by: James Fletcher M.D. Narrative [facility] - 12/11/2024 6:14 PM EDT [...] preserved. Extensor mechanism is unremarkable. Procedure Note Default, Chma Provider - 12/11/2024 Original Report EXAM: MR [...] by: James Fletcher M.D. Jose Luis Barrios [facility] IMG MRI Edited Re sult - Final [facility] Corporate Office [address], [address] [place] [address], * HEPATITIS C AB W/RFLX HCV RNA, QT, RT PCR (10/16/2022 11:05 AM EDT) HEPATITIS C ANTIBODY NON-REACT AMANDA NON-REACT AMANDA [facility] Comment: HCV antibody was non-reactive. There is no laboratory evidence of HCV infection. In most cases, no further action is required. However, if recent HCV exposure is suspected, a test for HCV RNA (test code 29129) is suggested. For additional information please refer to http://education.[employer]/faq/AZT99z3 (This link is being provided for informational/ educational purposes only.) Blood Blood / Unknown 10/16/2022 1 1:05 AM EDT 10/16/2022 11:06 AM EDT Narrative [facility] - 10/17/2022 6:08 PM EDT FASTING:NO Ricki [facility] - BLOOD DRAW Final Result [facility] [address] [address], [facility] [address] [place] [address] * PAP SMEAR (09/02/2020) PAP SMEAR INTERPRETATION NORMAL NORMAL [facility] Cervix 09/02/2020 [facility] - 09/02/2020 Thinprep pap: Negative for squamous intraepithelial lesion and malignancy Satisfactory for evaluation. Endocervical/transformation zone present. Provider [facility] - PATHOLOGY AND CYTOLOGY AMB ULATORY Final Result Performing Organization Address [facility] Co de Phone Number [facility] [address] [place] [address], * HIV-1 & HIV-2 ANTIBODIES (07/04/2018 10:00 AM EDT) HIV 1 AND 2 ANTIBODY SCREEN NEGATIVE NEGATIVE [facility] [employer] Comment: This assay is a 4th generation [...] 10:00 AM EDT 07/04/2018 11:05 AM EDT [facility] [employer] - 07/04/2018 2:27 PM EDT [employer], a member of [address] [address] Communication Engineer - Maria T Downing [place] [id number] ORD# [id number] Nicole Deluna PA-C LAB - BLOOD DRAW Final Re sult Performing Organization Address [facility]/State/ZIP Co de Phone Number [facility] [address] [place] [address], from Last 3 Months or Most Recently Relevant to Health Maintenance Insurance [place] [facility] [employer] [employer] [employer] Care Teams Director [place] Sales Relationship Specialty Start Date End Date Ricki Stokes PA [address] [place] [address] PCP - General Internal Medicine 06/05/18
== END 2025-02-03 16:43 | disposition home or self-care (01) ==
LOC: HO.HUSH 15:44
PROVIDERS: PCP Obstetrics & Gynecology Reproductive Endocrinology; Visit Provider Nurse Practitioner Family
DX: R31.29 Other microscopic hematuria (principal); R82.90 Unspecified abnormal findings in urine; K59.00 Constipation, unspecified; Z13.9 Encounter for screening, unspecified
CPT/HCPCS: 99213

== ENCOUNTER → 2025-02-03 15:44 | Outpatient (BNVA) | payer MEDICAID, SELFPAY | PROVIDERS: PCP Obstetrics & Gynecology Reproductive Endocrinology; Visit Provider Nurse Practitioner Family | DX: Z71.2 Person consulting for explanation of examination or test findings (principal); R82.90 Unspecified abnormal findings in urine; R31.29 Other microscopic hematuria; K59.00 Constipation, unspecified | CPT/HCPCS: 81003; 99212 ==